=== PATIENT | female | born 1945 | race Caucasian/White ===

== ENCOUNTER 2020-02-19 15:30 | Outpatient (RCR) | payer MEDICARE, OTHER, SELFPAY ==
--- NOTE | 2020-01-23 17:02 | ST.OPIE ---
Visit Care Team Role Provider Type Derrek Valdez MD Primary Care Provider Non-Staff Specialty: Internal Medicine Address: [address] [place], [address] Email: Janette Gale MD Other Providers Non-Staff Specialty: Internal Medicine Address: [address] [place] [address], [id number] Email: Marcial Johnson MD Attending Provider Physician Referring Provider Specialty: Ear, Nose, Throat Address: [address] [place] [address], [id number] Email: [email or web address] Speech-Language Pathology Initial Evaluation BILL BOARD POSTER Voice Resonance Evaluation Start: 01/22/20 15:47 Freq: Status: Active Protocol: Document 01/22/20 18:27 MORENITA (Rec: 01/22/20 18:27 MORENITA [id number]) Voice and Resonance Assessment Session Time Visit Start Time 14:30 Visit Stop Time 15:40 Total Visit Minutes 70 Visit Information Visit Number Initial Evaluation Plan of Care Dates 01/22/20 - 04/21/20 Insurance Information Medicare Next Note Type Next Note Type Treatment Note Referral Referring Physician Dr. 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 The pt reports frequently experiencing acid reflux, although d/t absence of stomach, she instead refluxes bile from intestines. During heavy coughing, bile sprays to the larynx, which triggers laryngospasm resulting in closing of the VFs. This reflux often also results in aspiration pneumonia, anywhere from 1-8x/ yr, per pt report. Last pneumonia was ~1 mo ago. The pt noted that one month following removal of her stomach in 1999, she spent 29 days in hospital d/t difficulty in passing the barium from a barium swallow study. Additionally, the pt noted that last year she underwent COPD testing which she was initially unable to complete because the expiratory force triggered coughing. She was given a nebulizer treatment which allowed her to complete the test without difficulty. Nebulizer was recommended by the Respiratory Therapist at that time, but the pt's PCP felt it would not be helpful and that the inhaler she had would suffice. However, the pt is unable to inhale during laryngospasm episodes, rendering the inhaler ineffective. Today she expressed the desire for a nebulizer prescription and stated she is consulting with Dr. Johnson about this. The pt reported that laryngospasm frequently occurs when she is talking and that mask wearing seems to aggravate it. She also finds that if she senses she may have to cough, she can proceed into a laryngospasm, almost talking herself into it. She manages episodes by attempting to relax and breathe and finds it also helps to drink Gatorade or suck on a lozenge to relax throat. Hearing Hearing Level Normal Vision Vision Status Not Impaired [place] Langauge Language(s) Spoken in the Home Persian Occupational Status Occupation Status Retired Previous Therapy Previous Speech-Language Therapy Yes History of Previous Therapy The pt was seen by BILL BOARD POSTER on [facility] following hospitalization in 1999 for treatment of laryngospasm, targeting breathing and relaxing strategies. The pt recalled some but not all of the strategies she had been taught and expressed desire for additional education and training to prevent and/or manage laryngospasms. Subjective Subjective The pt arrived on time and provided case history outlined above. - Laryngeal Performance Breath Support Breath Support At Rest Thoracic,Clavicular,Mixed Breath Support Conversation Thoracic,Clavicular,Mixed Speaks on Room Air Yes Postural Alignment Stance Balanced Voice Pitch Range Norms: Women (100-300 Hz) Men (70-250 Hz) Fundamental Frequency Norms: Women (Mean: 225 Hz; Range: 155-334 Hz) Men ( Mean: 128 Hz; Range: 85-196 Hz) Voice Pitch Normal Voice Loudness Normal Voice Phonatory-based Quality Normal Paradoxical Vocal Fold Movement Yes: Medical hx of Indications laryngospasm Resonance Nasal Resonance Normal Oral Resonance Normal Therapeutic Techniques Therapy Tactics Breath Support Other Tactics Education and training was provided orally and in writing RE laryngospasm/PVFM definition and description, relaxation and deep breathing techniques, and two alternative cough strategies. Techniques and strategies were trained with demonstration and written instructions. Cough alternatives were trained to reduce cough response to laryngospasm triggers in order to prevent laryngspasm; relaxation and breathing techniques were trained to assist pt in managing laryngospasm events by reducing duration and intensity. The pt performed techniques and cough alternatives, demonstrating understanding. Given her altered GI anatomy, deep breathing techniques targeted expansion of the lower rib cage while producing slow deep breaths in through the nose with slow exhalation through pursed lips or /s/. During the evaluation, coughing was triggered in the pt while she was talking. It was of moderate intensity but short duration and did not result in a laryngospasm. This BILL BOARD POSTER explained to the pt that if she had gone into a laryngospasm, the clinician would have talked the pt through relaxation and deep breathing in order to minimize the episode. This served as a useful example for real-life application, and the pt verbalized understanding. 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 She was familiar with some of the techniques trained today from previous therapy and was able to perform all techniques and strategies trained, making her an excellent candidate for therapy. Prognosis Rehabilitation Potential Good - Recommendations Treatment Recommended Yes Treatment Frequency/Duration 6 visits in 2 mos Placement Recommendation Home Therapy Recommendations Relaxation and deep breathing techniques; strategies to reduce cough Short Term Goals 1. The pt will perform relaxation and breathing techniques in structured tasks with min prompts to to reduce frequency, duration and intensity of laryngospasm events. 2. The pt will perform alternative cough techniques ( i.e., hard swallow, silent cough) to minimize cough reflex that may trigger laryngospasm. Offset Label Rewinder Goals 1. Using techniques and strategies as needed, the pt will independently prevent and /or manage laryngospasm episodes to reduce their frequency, duration and intensity in order to improve the pt's general wellness and her quality of life. Referrals Voice/Resonance Other Referral Follow up with ENT regarding nebulizer. Patient/Caregiver Education Patient/Family Education Described results of evaluation,Patient Understanding
--- NOTE | 2020-01-29 13:27 | ST.OPTN ---
Visit Care Team Role Provider Type Derrek Valdez MD Primary Care Provider Non-Staff Address: [address] [place], [address] Janette Gale MD Other Providers Non-Staff Address: [address] [place], [address] Marcial Johnson MD Attending Provider Physician Referring Provider Address: [address] [place] [address], [id number] BAR SUPERVISOR Treatment Note BAR SUPERVISOR Treatment Note Start: 01/22/20 15:47 Freq: Status: Active Protocol: Document 01/29/20 12:43 MORENITA (Rec: 01/29/20 13:26 MORENITA [id number]) Speech Pathology Treatment Note Subjective Observations/Patient Presentation No laryngospasms since last session. One strong cough when bent over. 1 episode of throat closing while talking on the phone, resolved by drinking liquid. Chief Complaint(s) Other Additional Areas of Concern PVFM/Laryngospasm Rehab Expectation/Goals: Patient Goals Reduce/eliminate laryngospasm Patient Knowledge/Awareness of BAR SUPERVISOR Role Excellent in Treatment Objective Treatment Activities Continued training in diaphragmatic breathing and cough alternatives. Pt benefited from performing breathing techniques in front of mirror for visual feedback, resulting in reduced clavicular movement and increased laryngeal relaxation . She performed silent cough and hard swallow, demonstrating understanding. Education provided with visual aids RE A&P of larynx/trachea and pharynx/esophagus and discussion of potential cough and laryngospasm triggers. The pt noted that in past therapy breathing techniques became second nature, and I just want to get there again. Discussed home practice and POC. Assessment Patient Response to Treatment Good Rehab Potential Good Impairments Identified Other Additional Impairments Identified PVFM/Laryngospasm Progress Towards Goals Good Progress Assessment of Overall Progress Improving Assessment of Improvement The pt demonstrates excellent understanding of treatment targets and how to perform therapeutic exercises and techniques. She is improving in performance of diaphragmatic breathing with biofeedback. Pt to continue with daily practice and will f/u 02/18 after she is again seen by Dr. Johnson. Reviewed with Patient Goals,Progress Being Made,Home Exercise Program Patient/Caregiver Understanding Excellent Plan Amount of Therapy Recommended 1-2 Months Length of Session 45 Minutes Therapeutic Contents Client Education,Home Exercise Program,Other Additional Areas of Treatment Breathing and coughing techniques to reduce PVFM/ laryngospasm Provided Patient/Caregiver Instruction Home Exercise Program,Plan of Care,Questions/Concerns
--- NOTE | 2020-02-19 16:33 | ST.OPTN ---
Visit Care Team Role Provider Type Derrek Valdez MD Primary Care Provider Non-Staff Address: [address] [place], [address] Janette Gale MD Other Providers Non-Staff Address: [address] [place], [address] Marcial Johnson MD Attending Provider Physician Referring Provider Address: [address] [place] [address], [address] AIRPLANE FLIGHT ATTENDANT Treatment Note AIRPLANE FLIGHT ATTENDANT Treatment Note Start: 01/22/20 15:47 Freq: Status: Active Protocol: Document 02/19/20 16:23 MORENITA (Rec: 02/19/20 16:33 MORENITA [id number]) Speech Pathology Treatment Note Session Time Visit Start Time 15:35 Visit Stop Time 16:20 Total Visit Minutes 45 Visit Information Visit Number 03/19 Plan of Care Dates 01/22/20 - 04/21/20 Insurance Information Medicare Setting Treatment Setting Outpatient Care Next Note Type Next Note Type Treatment Note General Information General Information The pt is a 74-yr-old female with extensive medical history including 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 The pt reports frequently experiencing acid reflux, although d/t absence of stomach, she instead refluxes bile from intestines. During heavy coughing, bile sprays to the larynx, which triggers laryngospasm resulting in closing of the VFs. This reflux often also results in aspiration pneumonia, anywhere from 1-8x/ yr, per pt report. Last pneumonia was ~1 mo ago. The pt noted that one month following removal of her stomach in 1999, she spent 29 days in hospital d/t difficulty in passing the barium from a barium swallow study. Additionally, the pt noted that last year she underwent COPD testing which she was initially unable to complete because the expiratory force triggered coughing. She was given a nebulizer treatment which allowed her to complete the test without difficulty. Nebulizer was recommended by the Respiratory Therapist at that time, but the pt's PCP felt it would not be helpful and that the inhaler she had would suffice. However, the pt is unable to inhale during laryngospasm episodes, rendering the inhaler ineffective. Today she expressed the desire for a nebulizer prescription and stated she is consulting with Dr. Johnson about this. The pt reported that laryngospasm frequently occurs when she is talking and that mask wearing seems to aggravate it. She also finds that if she senses she may have to cough, she can proceed into a laryngospasm, almost talking herself into it. She manages episodes by attempting to relax and breathe and finds it also helps to drink Gatorade or suck on a lozenge to relax throat. Subjective Observations/Patient Presentation Pt had 3 coughing episodes since last session, at least one of which occurred while bending over to tie her shoe. While she appears unable to anticipate coughing, she noted benefit from slow deep breathing and relaxation to recover from it. Also continues to find sipping liquid to be helpful. The pt saw Dr. Johnson yesterday, who performed rigid laryngoscopy and found no abnormalities, good VF ad- and adduction. Chief Complaint(s) Other Additional Areas of Concern PVFM/Laryngospasm Rehab Expectation/Goals: Patient Goals Reduce/eliminate laryngospasm Patient Knowledge/Awareness of AIRPLANE FLIGHT ATTENDANT Role Excellent in Treatment Objective Short Term Goals . The pt will perform relaxation and breathing techniques in structured tasks with min prompts to to reduce frequency, duration and intensity of laryngospasm events. 2. The pt will perform alternative cough techniques ( i.e., hard swallow, silent cough) to minimize cough reflex that may trigger laryngospasm. Limousine Driver Goals 1. Using techniques and strategies as needed, the pt will independently prevent and /or manage laryngospasm episodes to reduce their frequency, duration and intensity in order to improve the pt's general wellness and her quality of life. Treatment Activities Consulted with pt RE potential triggers of laryngospasm. Appears that bending over frequently results in coughing . Discussed eliminating this, and pt stated she has assistive devices to help donning and doffing shoes and socks. Pt agreeable to using. Pt also agreeable to recommendation to keep log of coughing and identify what she was doing when coughing started in order to identify other potential triggers. Pt performed laryngeal exercises and diaphragmatic breathing with improved form. She reports exercising 2x/day, which she was encouraged to continue. Assessment Patient Response to Treatment Good Rehab Potential Good Impairments Identified Other Additional Impairments Identified PVFM/Laryngospasm Progress Towards Goals Good Progress Assessment of Overall Progress Improving Assessment of Improvement The pt is progressing toward goals, performing exercises and breathing techniques independently and benefiting from their use to stop and recover from coughing episodes . Able to identify one likely trigger (bending over) and has tools to allow her to minimize or eliminate it. With logging of episodes, hopefully additional triggers will be identified and able to be eliminated or managed. Reviewed with Patient Goals,Progress Being Made,Home Exercise Program Patient/Caregiver Understanding Excellent Plan Amount of Therapy Recommended 1-2 Months Length of Session 45 Minutes Comment F/U in 2 wks Therapeutic Contents Client Education,Home Exercise Program,Other Additional Areas of Treatment Breathing and coughing techniques to reduce PVFM/ laryngospasm Provided Patient/Caregiver Instruction Home Exercise Program,Plan of Care,Questions/Concerns Therapy Recommendations Continue with Current Program
--- NOTE | 2020-03-03 16:49 | ST.OPDS ---
Visit Care Team Role Provider Type Derrek Valdez MD Primary Care Provider Non-Staff Address: [address] [place], [address] Janette Gale MD Other Providers Non-Staff Address: [address] [place], [address] Marcial Johnson MD Attending Provider Physician Referring Provider Address: [address] [place] [address], [address] DAIRY CHEMIST Treatment Note DAIRY CHEMIST Treatment Note Start: 01/22/20 15:47 Freq: Status: Active Protocol: Document 03/03/20 15:45 MORENITA (Rec: 03/03/20 16:49 MORENITA [id number]) Speech Pathology Treatment Note Visit Information Plan of Care Dates 01/22/20 - 04/21/20 Insurance Information Medicare Setting Treatment Setting Outpatient Care Visit Type Note Type Discharge Summary General Information General Information The pt is a 74-yr-old female with extensive medical history including 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 The pt reports frequently experiencing acid reflux, although d/t absence of stomach, she instead refluxes bile from intestines. During heavy coughing, bile sprays to the larynx, which triggers laryngospasm resulting in closing of the VFs. This reflux often also results in aspiration pneumonia, anywhere from 1-8x/ yr, per pt report. Last pneumonia was ~1 mo ago. The pt noted that one month following removal of her stomach in 1999, she spent 29 days in hospital d/t difficulty in passing the barium from a barium swallow study. Additionally, the pt noted that last year she underwent COPD testing which she was initially unable to complete because the expiratory force triggered coughing. She was given a nebulizer treatment which allowed her to complete the test without difficulty. Nebulizer was recommended by the Respiratory Therapist at that time, but the pt's PCP felt it would not be helpful and that the inhaler she had would suffice. However, the pt is unable to inhale during laryngospasm episodes, rendering the inhaler ineffective. Today she expressed the desire for a nebulizer prescription and stated she is consulting with Dr. Johnson about this. The pt reported that laryngospasm frequently occurs when she is talking and that mask wearing seems to aggravate it. She also finds that if she senses she may have to cough, she can proceed into a laryngospasm, almost talking herself into it. She manages episodes by attempting to relax and breathe and finds it also helps to drink Gatorade or suck on a lozenge to relax throat. Subjective Observations/Patient Presentation The patient called the clinic and requested discharge from skilled services. DAIRY CHEMIST called and talked to pt, who reported needing to quarentine until being fully vaccinated against COVID-19. She reported having seen Dr. Johnson on Feb 18, who found no scarring under larynx, which had been a concern of the pt's. She stated laryngospasm exercises targeted in therapy were helpful and expressed appreciation to the clinician. Agreed she will return with new MD orders after vaccination if symptoms persist or worsen. Chief Complaint(s) Other Additional Areas of Concern PVFM/Laryngospasm Rehab Expectation/Goals: Patient Goals Reduce/eliminate laryngospasm Objective Short Term Goals 1. The pt will perform relaxation and breathing techniques in structured tasks with min prompts to to reduce frequency, duration and intensity of laryngospasm events. 2. The pt will perform alternative cough techniques ( i.e., hard swallow, silent cough) to minimize cough reflex that may trigger laryngospasm. GOALS MET Office Chair Assembler Goals 1. Using techniques and strategies as needed, the pt will independently prevent and /or manage laryngospasm episodes to reduce their frequency, duration and intensity in order to improve the pt's general wellness and her quality of life. GOAL NOT FULLY MET Assessment Patient Response to Treatment Good Rehab Potential Good Impairments Identified Other Progress Towards Goals Good Progress Assessment of Overall Progress Improving Plan Therapy Recommendations Discharge to Home Exercise Program
== END 2020-03-18 07:40 ==
LOC: SP 15:30
PROVIDERS: PCP Internal Medicine; Referring Provider Otolaryngology; Visit Provider Otolaryngology
DX: R05 Cough (principal); J38.5 Laryngeal spasm
CPT/HCPCS: 92507; 92524

== ENCOUNTER → 2021-07-27 12:16 | Outpatient (CLI) | payer MEDICARE, OTHER, SELFPAY ==
--- NOTE | 2021-07-27 | DI.ECHO.S_ITS ---
[facility] +---------+ : : [address] : : : : [id number] : : : : Phone: [phone]+ Echocardiogram Report + + :Name: ARIANNA COTTRELL Study Date: 07/27/2021 Height: 68 in : :[facility] ReadingLocation: Weight: 148 lb : : Gender: Female BSA: 1.8 m2 : :: 1945 Age: 76 yrs BP: 167/88 mmHg: :Reason For Study: Murmur : :Ordering Physician: AYE, : :CAYLA Performed By: Sathya Rios : :Referring: CAYLA BELTRAN : + + Interpretation Summary 1) Normal left ventricular size, wall motion, and systolic function (EF 60- 65%). 2) Normal right ventricular size and function. 3) Aortic valve is calcific but no significant valvular stenosis or regurgitation are present. 4) No prior Echo available for comparison. Procedure: A two-dimensional transthoracic echocardiogram with color flow and Doppler was performed. The study quality was technically good. There is no prior echocardiogram noted for this patient. Left Ventricle: The left ventricle is normal in size. Left ventricular wall thickness is mildly increased. Left ventricular systolic function is normal. The ejection fraction is estimated to be 60-65%. There are no focal wall motion abnormalities. Diastolic parameters suggest a relaxation abnormality of the left ventricle, consistent with probable normal filling pressures. Right Ventricle: The right ventricle is normal in size and function. Atria: The left atrium is moderately dilated. The right atrium grossly appears normal in size. The interatrial septum grossly appears intact with no obvious evidence for an atrial septal defect. Mitral Valve: There is mild mitral annular calcification. There is mild mitral regurgitation. Aortic Valve: There is mild aortic valve sclerosis. There is no aortic valve stenosis. No aortic regurgitation is present. Tricuspid Valve: The tricuspid valve is normal in structure and function. There is mild tricuspid regurgitation. The right ventricular systolic pressure is estimated to be at least 41 mmHg based on an estimated right atrial pressure of 3 mm Hg. Pulmonic Valve: The pulmonic valve is not well seen, but is grossly normal. There is no pulmonic valvular regurgitation. Great Vessels: The aortic root is normal size. The IVC is of normal diameter and collapses greater than 50% with a sniff. This suggests a low right atrial pressure of 3 mm Hg. Pericardium/ Pleura There is no pericardial effusion. There is no pleural effusion. MMode/2D Measurements & Calculations LVIDd: 4.4 cm LVOT diam: 2.1 cm LVIDs: 2.8 cm Ao root diam: 3.2 cm FS: 36.4 % IVSd: 1.1 cm LVPWd: 1.0 cm LV levi. diameter/BSA (cm/m^2): 2.4 LV sys. diameter/BSA (cm/m^2): 1.6 LA dimension: 4.0 cm RA long axis: 4.9 cm LA A2 area: 26.3 cm2 IVC diam: 1.5 cm LA A4 area: 24.9 cm2 LA length (vol): 6.0 cm LA vol: 92.0 ml LA vol index: 51.2 ml/m2 TAPSE_phl: 3.0 cm Doppler Measurements & Calculations Ao V2 max: 179.0 cm/sec LVOT Max Lyndon: 128.0 cm/sec Ao V2 mean: 121.0 cm/sec LV V1 max P.6 mmHg Ao max P.0 mmHg LV V1 VTI: 25.5 cm Ao mean P.0 mmHg YAZAN(I,D): 3.1 cm2 Ao V2 VTI: 28.2 cm YAZAN(V,D): 2.5 cm2 sev ratio: 0.90 YAZAN indexed to BSA (cm^2/m^2): 1.7 MV E max lyndon: 77.1 cm/sec TR max lyndon: 308.0 cm/sec MV A max lyndon: 82.7 cm/sec TR max P.9 mmHg MV E/A: 0.93 Med Peak E' Lyndon: 6.0 cm/sec E/E' med: 12.9 Lat Peak E' Lyndon: 9.2 cm/sec E/E' lat: 8.4 E/e' average: 10.6 MV dec time: 0.25 sec SV(LVOT): 88.3 ml AV VR_phl: 0.72 YAZAN(VTI)/BSA_phl: 1.7 MV P1/2t-pr_phl: 72.0 msec Reading Physician:02:38 PM
== END ==
PROVIDERS: PCP Internal Medicine; Referring Provider Internal Medicine Cardiovascular Disease; Visit Provider Internal Medicine Cardiovascular Disease
DX: I48.0 Paroxysmal atrial fibrillation (principal); R01.1 Cardiac murmur, unspecified; I08.3 Combined rheumatic disorders of mitral, aortic and tricuspid valves
CPT/HCPCS: 93306

== ENCOUNTER 2021-11-16 16:04 | Emergency (ER) | payer MEDICARE, OTHER, SELFPAY ==
[2021-11-16] VITALS (14 sets, daily range): BP systolic 117–176; BP diastolic 83–112; PULSE 98–143; RESP 11–30; TEMP 36.6; O2SAT 95–97; BMI 22.0
--- NOTE | 2021-11-16 16:46 | DI.RAD.S_ITS ---
PROCEDURE: XR CHEST 1V INDICATIONS: chest pain TECHNIQUE: One view of the chest was acquired. COMPARISON: None. FINDINGS: Surgical changes and devices: None. Lungs and pleura: Interstitial prominence is likely chronic. Lungs are otherwise clear. No pleural effusions or pneumothorax. Mediastinum: Mediastinal contours appear normal. Heart size is enlarged for a portable study. Bones and chest wall: No suspicious bony lesions. Overlying soft tissues appear unremarkable. IMPRESSION: No acute cardiopulmonary abnormality Dictated by: Gene Montes M.D. on 11/16/2021 at 17:27 Approved by: Gene Montes M.D. on 11/16/2021 at 17:28
--- NOTE | 2021-11-16 17:12 | PC.NURSE ---
In triage patient took 120mg of Diltazem and 20mg of Lisinopril and other of her regular medications. Denies symptoms of rapid afib. Not on thinners.
--- NOTE | 2021-11-16 17:33 | ED_ITS ---
HPI - Arrhythmia/Palpitations General Chief Complaint: Arrhythmia/Palpitations Stated Complaint: Abnormal EKG Time Seen by Provider: 11/16/21 17:08 Source: patient Mode of arrival: Ambulatory History of Present Illness HPI narrative: Patient is a 76-year-old female. History of atrial fibrillation. Has a prescription for diltiazem. Went to her it security administrator today. Noticed that her heart rate was in the 140s. Patient is asymptomatic from this. Some concern about whether not she is been taking the diltiazem on a regular basis. She is not on anticoagulation. No chest pain, no shortness of breath, no lightheadedness. No swelling in her lower extremities. Was sent from her it security administrator's office for better rate control. Related Data Home Medications Medication Instructions Recorded Confirmed diltiazem HCl 120 mg 120 mg PO DAILY 11/16/21 11/16/21 capsule,extended release 24 hr (Cardizem CD) lisinopril 10 mg tablet 10 mg PO DAILY 11/16/21 11/16/21 raloxifene 60 mg tablet 60 mg PO DAILY 11/16/21 11/16/21 Allergies Allergy/AdvReac Type Severity Reaction Status Date / Time esomeprazole [From NEXIUM] Allergy Mild HEADACHE Unverified 11/16/21 16:39 omeprazole [OMEPRAZOLE] Allergy Mild HEADACHE Unverified 11/16/21 16:39 Sulfa (Sulfonamide Allergy Mild RASH Unverified 11/16/21 16:39 Antibiotics) [SULFA (SULFONAMIDE ANTIBIOTICS)] Review of Systems Review of Systems ROS Unobtainable: All systems reviewed & are unremarkable except as noted in HPI and below Patient History Medical History Atrial fibrillation Social History Smoking Status: Former smoker Smoking Status: Former smoker alcohol intake frequency: holidays/special occasions only Alcohol type: wine Substance Use Type: does not use Exam Initial Vital Signs Initial Vital Signs: Vital Signs Temperature 98 F 11/16/21 16:32 Pulse Rate 143 H 11/16/21 16:32 Respiratory Rate 17 11/16/21 16:32 Blood Pressure 117/83 11/16/21 16:32 Pulse Oximetry 96 11/16/21 16:32 Oxygen Delivery Method 11/16/21 16:32 Const General: cooperative and comfortable HENMT Head: normal to inspection and normocephalic Resp Effort & Inspection: normal respiratory effort Auscultation: clear to auscultation bilaterally Cardio Rate: tachycardic Rhythm: abnormal rhythm GI Inspection: normal to inspection Palpation: soft and No tender Skin General: no rashes or lesions noted Neuro General: patient alert, patient awake and moves all extremities Extrem General: No edema Psych Appearance: grossly normal Course Orders Ordered: ED Orders 11/16/21 16:46 XR chest 1V Stat 11/16/21 16:50 EKG-12 Lead Stat 11/16/21 17:05 Complete Blood Count AUTO DIFF Stat Comprehensive Metabolic Panel Stat Lipase Stat Magnesium Stat Troponin & CK Cardiac Panel Stat 11/16/21 18:24 COVID19 -Nasal RAPID/Pre-Proc Stat Vital Signs Vital signs: Vital Signs - 8 hr 11/16/21 16:32 11/16/21 17:00 11/16/21 17:01 Temperature 98 F Pulse Rate 143 H 134 H Respiratory Rate 17 Blood Pressure 117/83 122/90 Pulse Oximetry 96 Oxygen Delivery Method Room Air 11/16/21 17:01 11/16/21 17:15 11/16/21 17:15 Temperature Pulse Rate 137 H 139 H Respiratory Rate 13 19 Blood Pressure 134/102 H Pulse Oximetry 96 97 Oxygen Delivery Method 11/16/21 17:30 11/16/21 17:30 11/16/21 17:46 Temperature Pulse Rate 139 H Respiratory Rate 26 H Blood Pressure 137/103 H 176/93 H Pulse Oximetry 96 Oxygen Delivery Method 11/16/21 17:46 11/16/21 18:00 11/16/21 18:01 Temperature Pulse Rate 136 H 137 H Respiratory Rate 23 19 Blood Pressure 129/90 Pulse Oximetry 96 95 Oxygen Delivery Method 11/16/21 18:01 11/16/21 18:15 11/16/21 18:15 Temperature Pulse Rate 135 H 122 H Respiratory Rate 18 12 Blood Pressure 138/90 Pulse Oximetry 96 95 Oxygen Delivery Method MDM - Arrhythmia/Palpitations Lab Data Attestation: I reviewed the patient's lab results. Result diagrams: 11/16/21 17:05 11/16/21 17:05 Labs: Lab Results 11/16/21 11/16/21 Range/Units 17:05 17:05 WBC 7.9 (4.5-11.0) X10^3/uL RBC 3.75 L (4.0-5.2) X10^6/uL Hgb 11.6 L (12.0-16.0) g/dL Hct 34.2 L (36-46) % MCV 91.3 (80-100) fL MCH 30.9 (26-34) PG MCHC 33.9 (30-36) % RDW 14.4 (11.6-14.8) % Plt Count 392 (150-400) X10^3/uL Neut % (Auto) 74.5 (50-75) % Lymph % (Auto) 14.0 L (25-40) % [place] % (Auto) 7.8 (3-14) % Eos % (Auto) 1.2 L (2-4) % Baso % (Auto) 2.5 H (0-2) % Neut # (Auto) 5900 (0587-1540) /uL Lymph # (Auto) 1100 (2756-2282) /uL [place] # (Auto) 600 (0-900) /uL Eos # (Auto) 100 (0-450) /uL Baso # (Auto) 200 H (0-100) /uL Sodium 141 (137-145) mmol/L Potassium 4.6 (3.4-5.1) mmol/L Chloride 105 (98-107) mmol/L Carbon Dioxide 25 (22-32) mmol/L BUN 25 H (7-17) mg/dL Creatinine 1.33 H (0.52-1.04) mg/dL Estimated GFR 41 L (>60) mL/min BUN/Creatinine Ratio 18.8 (6-22) Glucose 99 (80-110) mg/dL Calcium 8.5 (8.4-10.2) mg/dL Magnesium 1.8 (1.6-2.3) mg/dL Total Bilirubin 0.5 (0.2-1.3) mg/dL AST 26 (14-36) IU/L ALT 14 (<35) IU/L Alkaline Phosphatase 73 (38-126) U/L Total Creatine Kinase 83 (30-135) U/L CK-MB (CK-2) TNP CK-MB (CK-2) Rel Index TNP Troponin I < 0.012 (0.01-0.034) ng/mL Total Protein 7.5 (6.3-8.2) g/dL Albumin 3.7 (3.5-5.0) g/dL Globulin 3.8 (1.7-4.1) g/dL Albumin/Globulin Ratio 1.0 (1.0-2.8) Lipase 99 (23-300) U/L Imaging Data Chest x-ray: Radiologist's Impresson: [address] [address] XRay Report Signed Patient: Maryjo Ponce MR#: [id number] : 1945 Acct:[id number] Age/Sex: 76 / F Date of Service: 11/16/21 Loc: ED Accession Number: [id number] ?? Procedure: XR chest 1V Ordering Provider: Kaveh Myers D.O. PROCEDURE:? XR CHEST 1V ? INDICATIONS:? chest pain ? TECHNIQUE:? One view of the chest was acquired.? ? COMPARISON:? None. ? FINDINGS:? ? Surgical changes and devices:? None.? ? Lungs and pleura: Interstitial prominence is likely chronic. ? Lungs are otherwise clear. ?No pleural effusions or pneumothorax.? ? Mediastinum:? Mediastinal contours appear normal.? Heart size is enlarged for a portable study.? ? Bones and chest wall:? No suspicious bony lesions.? Overlying soft tissues appear unremarkable.? ? IMPRESSION:? No acute cardiopulmonary abnormality ? ? Dictated by: Gene Montes M.D. on 11/16/2021 at 17:27 ? ? Approved by: Gene Montes M.D. on 11/16/2021 at 17:28? ECG Data Attestation: I personally reviewed and interpreted this ECG as follows: Interpretation: Atrial fibrillation Ventricular rate 136 Normal axis Normal QRS Normal QTC No ST T wave changes MDM Narrative Medical decision making narrative: Patient is in AFib. With rapid response. Blood pressure is unremarkable. She is asymptomatic. She was given a dose of her diltiazem. Her heart rate now was more consistently in the 100s to 120 range. Blood pressure continues to remain stable. She continues to be asymptomatic. Will discharge home and she will make the medication changes that her it security administrator recommended today. She will continue with the diltiazem. She was given return precautions. She expressed understanding and agreement. Discharge Plan Departure Patient Disposition: Home Clinical Impression: Atrial fibrillation Instructions: DI for Atrial Fibrillation Activity Restrictions/Additional Instructions: I recommend that you continue to take all of your medications as directed and be sure to make the medication changes that the it security administrator recommended today. Return to the emergency department for any new or worsening symptoms. Prescriptions: No Action lisinopril 10 mg tablet 10 mg PO DAILY Label Comments: TAKE ONE TABLET BY MOUTH ONE TIME DAILY raloxifene 60 mg tablet 60 mg PO DAILY Label Comments: TAKE 1/2 TABLET BY MOUTH TWICE DAILY diltiazem HCl [Cardizem CD] 120 mg capsule,extended release 24hr 120 mg PO DAILY Referrals: Derrek Valdez MD [Primary Care Provider] -
[2021-11-16 17:38] LABS: Add Manual Diff / Slide Review NO; Basophils Absolute Auto 200 /uL (0-100); Basophils Percent Auto 2.5 % (0-2); Eosinophils Absolute Auto 100 /uL (0-450); Eosinophils Percent Auto 1.2 % (2-4); Hematocrit 34.2 % (36-46); Hemoglobin 11.6 g/dL (12.0-16.0); Lymphocytes Absolute Auto 1100 /uL (1100-4500); Mean Corpuscular HGB Conc 33.9 % (30-36); Mean Corpuscular Hemoglobin 30.9 PG (26-34); Mean Corpuscular Volume 91.3 fL (80-100); Monocytes Absolute Auto 600 /uL (0-900); Monocytes Percent Auto 7.8 % (3-14); Neutrophils Absolute Auto 5900 /uL (1500-7000); Neutrophils Percent Auto 74.5 % (50-75); Platelet Count 392 X10^3/uL (150-400); Red Blood Cell Count 3.75 X10^6/uL (4.0-5.2); Red Cell Distribution Width 14.4 % (11.6-14.8); White Blood Cell Count 7.9 X10^3/uL (4.5-11.0)
[2021-11-16 17:39] LABS: Alanine Aminotransferase 14 IU/L (<35); Albumin 3.7 g/dL (3.5-5.0); Alkaline Phosphatase 73 U/L (38-126); Aspartate Aminotransferase 26 IU/L (14-36); BUN Creatinine Ratio 18.8 (6-22); Bilirubin Total 0.5 mg/dL (0.2-1.3); Blood Urea Nitrogen 25 mg/dL (7-17); Calcium 8.5 mg/dL (8.4-10.2); Carbon Dioxide 25 mmol/L (22-32); Chloride 105 mmol/L (98-107); Creatine Kinase 83 U/L (30-135); Estimated Glomerular Filt Rate 41 mL/min (>60); Globulin 3.8 g/dL (1.7-4.1); Glucose 99 mg/dL (80-110); HEMOLYSIS < 15 (0-50); Lipase 99 U/L (23-300); Magnesium 1.8 mg/dL (1.6-2.3); Potassium 4.6 mmol/L (3.4-5.1); Sodium 141 mmol/L (137-145); Total Protein 7.5 g/dL (6.3-8.2)
[2021-11-16 17:50] LABS: Troponin I < 0.012 ng/mL (0.01-0.034)
== END 2021-11-16 19:43 | disposition home or self-care (01) ==
PROVIDERS: Emergency Provider Emergency Medicine; PCP Internal Medicine
DX: I48.91 Unspecified atrial fibrillation (principal); R07.9 Chest pain, unspecified
CPT/HCPCS: 36415; 71045; 80053; 82550; 83690; 83735; 84484; 85025; 93005; 93010; 99283; 99284

== ENCOUNTER → 2022-08-27 15:26 | Outpatient (CLI) | payer MEDICARE, OTHER, SELFPAY ==
--- NOTE | 2022-08-27 15:27 | DI.ECHO.S_ITS ---
[facility] +---------+ [facility] +---------+ : : [address] : : : : [id number] : : : : Phone: [phone]+ Echocardiogram Report + + :Name: ARIANNA COTTRELL Study Date: 08/27/2022 Height: 68 in : :[facility] ReadingLocation: Weight: 150 lb : : Gender: Female BSA: 1.8 m2 : :: 1945 Age: 77 yrs BP: 121/83 mmHg: :Reason For Study: Paroxysmal Atrial Fibrillation : :Ordering Physician: AYE, : :CAYLA Performed By: Germania Benítez : :Referring: CAYLA BELTRAN : + + Interpretation Summary 1) Normal left ventricular size with low normal systolic function (EF 50-55%). 2) Mildly enlarged right ventricle with mildly reduced function. 3) The left atrium is severely dilated. 4) There is mild to moderate aortic stenosiss (valve area 1.3cm2, mean gradient 7mmHg). 5) There is moderate tricuspid regurgitation. 6) The right ventricular systolic pressure is estimated to be at least 33 mmHg based on an estimated right atrial pressure of 8 mm Hg. 7) Compared to the Echo done 07/27/2021, mild to moderate aortic stenosis, RV enlargement, moderate tricuspid regurgitation are present on this study. Procedure: A two-dimensional transthoracic echocardiogram with color flow and Doppler was performed. The study quality was technically good. Comparison is made with the echocardiogram of 07/27/2021. The patient was in atrial fibrillation with heart rates between 80 bpm during the exam. Left Ventricle: The left ventricle is normal in size. There is normal left ventricular wall thickness. The ejection fraction is estimated to be 50-55%. There are no focal wall motion abnormalities. Diastolic function could not be accurately assessed due to atrial fibrillation. Right Ventricle: The right ventricle is mildly dilated. Right ventricular systolic function is mildly reduced. Atria: The left atrium is severely dilated. The right atrium is moderately dilated. There is no Doppler evidence for an interatrial shunt. Mitral Valve: The mitral valve leaflets appear moderately thickened, but open well. There is mild to moderate mitral annular calcification. The mitral valve mean gradient is 3.7 mmHg. There is trace mitral regurgitation. Aortic Valve: The aortic valve is moderately calcified. The peak aortic velocity is 1.88 m/sec. The aortic valve mean gradient is 7.4 mmHg. There is mild to moderate aortic stenosis. No aortic regurgitation is present. Tricuspid Valve: Tricuspid leaflets are thickened. There is no tricuspid stenosis. There is moderate tricuspid regurgitation. The right ventricular systolic pressure is estimated to be at least 33 mmHg based on an estimated right atrial pressure of 8 mm Hg. Pulmonic Valve: The pulmonic valve leaflets are thin and pliable; valve motion is normal. There is no pulmonic valvular stenosis. There is mild pulmonic regurgitation. Great Vessels: The aortic root is normal size. The ascending aorta is normal in size. The pulmonary artery is normal size. The IVC is dilated (diameter is greater than 2.1 cm) yet it collapses greater than 50% with a sniff. This suggests a right atrial pressure of 8 mm Hg. Pericardium/ Pleura There is no pericardial effusion. MMode/2D Measurements & Calculations LVIDd: 4.2 cm LVOT diam: 2.0 cm LVIDs: 2.9 cm Ao root diam: 3.0 cm FS: 31.0 % asc Aorta Diam: 3.4 cm IVSd: 1.4 cm LVPWd: 1.0 cm LV levi. diameter/BSA (cm/m^2): 2.3 LV sys. diameter/BSA (cm/m^2): 1.6 LA A2 area: 26.1 cm2 RA long axis: 5.7 cm LA A4 area: 25.2 cm2 RA area: 20.9 cm2 LA length (vol): 5.9 cm RA vol: 65.0 ml LA vol: 95.1 ml RA : 36.0 ml/m2 LA vol index: 52.6 ml/m2 RVD1 (basal): 4.6 cm LVLs ap4: 5.6 cm LVLd ap2: 6.7 cm TAPSE_phl: 1.7 cm LVLs ap2: 5.8 cm Doppler Measurements & Calculations Ao V2 max: 188.7 cm/sec LVOT Max Lyndon: 84.0 cm/sec Ao V2 mean: 128.1 cm/sec LV V1 max P.8 mmHg Ao max P.3 mmHg YAZAN(V,D): 1.3 cm2 Ao mean P.4 mmHg Ao V2 VTI: 35.7 cm TR max lyndon: 249.3 cm/sec MV V2 mean: 53.8 cm/sec TR max P.0 mmHg MV mean P.3 mmHg MV V2 VTI: 23.0 cm Reading Physician:05:40 PM
== END ==
PROVIDERS: PCP Internal Medicine; Referring Provider Internal Medicine Cardiovascular Disease; Visit Provider Internal Medicine Cardiovascular Disease
DX: I08.3 Combined rheumatic disorders of mitral, aortic and tricuspid valves (principal); I48.0 Paroxysmal atrial fibrillation
CPT/HCPCS: 93306